=== PATIENT | female | born 1995 | race African-American/Black ===

== ENCOUNTER 2019-12-21 21:55 | Emergency (ER) | payer SELFPAY ==
--- NOTE | ~2019-12-21 | XR_ITS ---
EXAMINATION: XR chest 2V DATE: 12/21/2019 22:59 INDICATION: Cough and shortness of breath TECHNIQUE: PA and lateral views of the chest are obtained. COMPARISON: None available FINDINGS: The lungs are free of acute opacities. There is no pleural effusion or pneumothorax. The ca rdiomediastinal silhouette is normal. The visualized bones and soft tissues are unremarkable. IMPRESSION: 1. No acute cardiopulmonary abnormality. Reviewed, dictated and finalized at location A.
[2019-12-21 21:59] VITALS: BP 123/64; PULSE 88; RESP 16; TEMP 38.1; O2SAT 100
--- NOTE | 2019-12-21 23:03 | PC.NURSE ---
Assumed care of pt at this time. report from SCOTTY Howard
--- NOTE | 2019-12-21 23:22 | ED.URI ---
HPI - URI/Sore Throat General Chief Complaint: Upper Respiratory Infection Stated Complaint: cough, scratchy throat, tapia Time Seen by Provider: 12/21/19 21:59 History of Present Illness HPI Narrative: Patient is a 24-year-old female who presents ER with fever as well as body aches as well as sore throat and dry cough. Symptoms began yesterday. They occurred as she arrived back from [place] where she had spent the last week. She flew from [place] to [place] to [facility] and then flew back through [place] landing yesterday. No vomiting/abdominal pain/diarrhea/urinary frequency/urinary urgency/dysuria. No known sick contacts. Has taken some NyQuil for her discomfort. Mild nausea. Related Data Home Medications Medication Instructions Recorded Confirmed metronidazole 12/21/19 Allergies Allergy/AdvReac Type Severity Reaction Status Date / Time No Known Allergies Allergy Verified 12/21/19 23:29 Review of Systems Review of Systems: All systems reviewed & are unremarkable except as noted in HPI and below Constitutional: Constitutional: Denies chills, Reports fatigue and Reports fever(s) ENT: Denies nasal congestion and Reports sore throat Respiratory: Respiratory: Denies chest congestion, Reports cough, Denies dyspnea and Denies wheezing Gastrointestinal: Gastrointestinal: Denies diarrhea, Reports nausea and Denies vomiting Genitourinary: Genitourinary: Reports no additional female genitourinary complaints, Reports nocturia and Reports dysuria PMFSH Past Medical History Medical History (Updated 12/22/19 @ 00:07 by Andry Noe MD) No pertinent past medical history Surgical History Surgical History (Updated 12/21/19 @ 23:24 by Andry Noe MD) No pertinent past surgical history Social History Social History (Updated 12/21/19 @ 23:24 by Andry Noe MD) Smoking status: Never smoker Exam Narrative: Exam Narrative: GENERAL: Well-appearing, well-nourished, and in no acute distress. HEAD: Normocephalic, atraumatic. ENT: Mucous membranes moist. No pharyngeal erythema or tonsillar exudate. Uvula midline nonedematous. TMs normal bilaterally. NECK: Supple. CHEST: Clear to auscultation. No respiratory distress. HEART: Regular rate and rhythm. Normal peripheral pulses. EXTREMITIES: Normal range of motion. No edema. SKIN: Warm, dry, no rash. NEURO: Alert and oriented x3. PSYCH: Normal mood and affect. Course Course Emergency Course: No leukopenia or lymphopenia. Discussed with infection control and due to normal x-ray enterococcus and s posterior more endemic area for COVID patient will not be screened for viral infection. Patient is fusing to give a second sample for CMP since for sample was hemolyzed. She will be discharged. Vital Signs Vital signs: Vital Signs Temperature 100.5 F H 12/21/19 21:59 Pulse Rate 88 12/21/19 21:59 Respiratory Rate 16 12/21/19 21:59 Blood Pressure 123/64 12/21/19 21:59 Pulse Oximetry 100 12/21/19 21:59 Temperature 99.8 F H 12/21/19 23:29 Pulse Rate 85 12/21/19 23:29 Respiratory Rate 12 12/21/19 23:29 Blood Pressure 114/81 12/21/19 23:29 Pulse Oximetry 100 12/21/19 23:29 MDM - URI/Sore Throat Lab Data Result diagrams: 12/21/19 23:31 12/21/19 23:31 Labs: Lab Results 12/21/19 12/21/19 Range/Units 23:31 23:31 WBC 4.8 (4.5-10.0) K/mm3 RBC 4.95 (4.2-5.4) M/mm3 Hgb 13.7 (12.0-15.0) g/dL Hct 42.6 (37.0-47.0) % MCV 86.1 (80-100) fl MCH 27.7 (26-34) pg MCHC 32.2 (32-36) g/dl RDW 13.6 (11.5-14.5) % Plt Count 224 (150-375) k/mm3 MPV 11.5 H (7.4-10.4) fl Immature Gran % (Auto) 0.6 H (0-0.5) % Neut % (Auto) 63.3 (45.5-73.1) % Lymph % (Auto) 19.0 (18.3-44.2) % [place] % (Auto) 16.3 H (2.6-8.5) % Eos % (Auto) 0.4 (0-4.4) % Baso % (Auto) 0.4 (0.2-1.2) % Lymph # (Auto) 0.92 (0.9-3.2) K/mm3 [place] # (Auto) 0.8 H
[2019-12-21] MEDS: SODIUM CHLORIDE 0.9% IV 1,000 ML 999 ML IV CONT (23:26)
[2019-12-21] MEDS: ONDANSETRON INJ 4 MG/2 ML VIAL IV PUSH (23:27)
[2019-12-21] MEDS: ACETAMINOPHEN 500 MG TABLET 1000 MG PO (23:28)
[2019-12-21 23:29] VITALS: BP 114/81; PULSE 85; RESP 12; TEMP 37.7; O2SAT 100
[2019-12-21 23:40] LABS: Basophils Percent Auto 0.4 % (0.2-1.2); Eosinophils Percent Auto 0.4 % (0-4.4); Hematocrit 42.6 % (37.0-47.0); Hemoglobin 13.7 g/dL (12.0-15.0); Immature Granulocyte Absolute 0.03 K/mm3 (0.00-0.031); Immature Granulocyte Percent A 0.6 % (0-0.5); Lymphocytes Absolute Auto 0.92 K/mm3 (0.9-3.2); Mean Corpuscular HGB Conc 32.2 g/dl (32-36); Mean Corpuscular Hemoglobin 27.7 pg (26-34); Mean Corpuscular Volume 86.1 fl (80-100); Mean Platelet Volume 11.5 fl (7.4-10.4); Monocytes Absolute Auto 0.8 K/mm3 (0.1-0.6); Monocytes Percent Auto 16.3 % (2.6-8.5); Neutrophils Absolute Auto 3.1 K/mm3 (1.3-6.7); Neutrophils Percent Auto 63.3 % (45.5-73.1); Platelet Count Result 224 k/mm3 (150-375); Red Blood Count 4.95 M/mm3 (4.2-5.4); Red Cell Distribution Width 13.6 % (11.5-14.5); White Blood Count 4.8 K/mm3 (4.5-10.0)
[2019-12-21 23:58] VITALS: TEMP 38.2
--- NOTE | 2019-12-22 00:16 | PC.NURSE ---
PT refused repeat blood draw MD and RN notified. no further orders at this time.
[2019-12-22 00:20] VITALS: BP 139/82; PULSE 96; RESP 12; TEMP 38.2; O2SAT 100
== END 2019-12-22 00:20 | disposition home or self-care (01) ==
PROVIDERS: Emergency Provider Emergency Medicine
DX: B34.9 Viral infection, unspecified (principal)
CPT/HCPCS: 36415; 71046; 85025; 87081; 87804; 87880; 96361; 96374; 99284; A9270; J2405; J7030

== ENCOUNTER 2021-06-23 08:51 | Emergency (ER) | payer OTHER, SELFPAY ==
[2021-06-23 08:57] VITALS: BP 127/80; PULSE 83; RESP 18; TEMP 35.9; O2SAT 96
[2021-06-23 10:33] LABS: Basophils Absolute Auto 0.1 K/mm3 (0.0-0.1); Basophils Percent Auto 0.9 % (0.2-1.2); Eosinophils Absolute Auto 0.1 K/mm3 (0-0.3); Eosinophils Percent Auto 1.3 % (0-4.4); Hematocrit 39.1 % (37.0-47.0); Hemoglobin 12.5 g/dL (12.0-15.0); Immature Granulocyte Absolute 0.02 K/mm3 (0.00-0.031); Immature Granulocyte Percent A 0.4 % (0-0.5); Lymphocytes Absolute Auto 1.74 K/mm3 (0.9-3.2); Lymphocytes Percent Auto 32.2 % (18.3-44.2); Mean Corpuscular Hemoglobin 27.4 pg (26-34); Mean Corpuscular Volume 85.6 fl (80-100); Mean Platelet Volume 11.2 fl (7.4-10.4); Monocytes Absolute Auto 0.6 K/mm3 (0.1-0.6); Monocytes Percent Auto 10.6 % (2.6-8.5); Neutrophils Percent Auto 54.6 % (45.5-73.1); Platelet Count Result 240 k/mm3 (150-375); Red Blood Count 4.57 M/mm3 (4.2-5.4); Red Cell Distribution Width 13.4 % (11.5-14.5); White Blood Count 5.4 K/mm3 (4.5-10.0)
[2021-06-23 10:44] LABS: Alanine Aminotransferase 10 U/L (4-35); Albumin Level 4.4 g/dL (3.5-5.1); Alkaline Phosphatase 88 U/L (38-126); Anion Gap 8 mmol/L (8-16); Aspartate Amino Transferase 20 U/L (14-36); Bilirubin,Total 0.2 mg/dL (0.2-1.3); Blood Urea Nitrogen 15 mg/dL (7-17); Calcium 8.9 mg/dL (8.4-10.2); Carbon Dioxide 25 mmol/L (22-30); Chloride 105 mmol/L (98-107); Estimated CRCL calculation 107 ml/min; Estimated Glomerular Filt Rate > 60; Glucose 98 mg/dL (65-110); Lipase 21 U/L (23-300); Potassium 4.1 mmol/L (3.4-5.0); Sodium 138 mmol/L (137-145)
[2021-06-23 10:45] LABS: Add Urine Microscopic? YES; Appearance Urine Cloudy (Clear); Bilirubin Urine Negative (Negative); Blood Urine 3+ (Negative); Color Urine Yellow (Yellow); Glucose Urine UA 3+ mg/dL (Negative); Ketones Urine Negative (Negative); Leukocyte Esterase Ur 3+ LEU/UL (Negative); Mucus Urine Rare /lpf; Nitrate Urine Negative (Negative); Protein Urine 1+ mg/dL (Negative); RBC Urine >75 /hpf (0-2); Specific Grav Ur 1.018 (1.001-1.035); Squamous Epithelial Cell Urine Few /hpf (Few); WBC Urine 21-30 /hpf
--- NOTE | 2021-06-23 11:46 | ED.ABDPAIN ---
HPI - Abdominal Pain General Chief Complaint: Vaginal Bleeding Stated Complaint: heavy vaginal bleeding Time Seen by Provider: 06/23/21 09:44 Source: patient Mode of arrival: ambulatory Limitations: no limitations History of Present Illness HPI narrative: 25-year-old with no major medical problems here with complaints of heavy vaginal bleeding since this morning. She states that she passed a few clots and has 1 overnight pad. She denies any abdominal cramping. No history of feeling lightheaded or dizzy. She states that she did not have heavy. Like this in the past. Relieving factors: nothing Related Data Home Medications Medication Instructions Recorded Confirmed No Home Medications 06/23/21 06/23/21 Allergies Allergy/AdvReac Type Severity Reaction Status Date / Time No Known Allergies Allergy Verified 06/23/21 09:46 Review of Systems Review of Systems: All systems reviewed & are unremarkable except as noted in HPI and below Constitutional: Constitutional: Reports no additional constitutional complaints Eyes: Eyes: Reports no additional eye complaints ENT: Reports system reviewed and no additional complaints, except as documented Cardiovascular: Cardiovascular: Reports no additional cardiovascular complaints Respiratory: Respiratory: Reports no additional respiratory complaints Gastrointestinal: Gastrointestinal: Reports no additional gastrointestinal complaints Genitourinary: Genitourinary: Reports abnormal vaginal bleeding Musculoskeletal: Musculoskeletal: Reports no additional musculoskeletal complaints Integumentary/Breasts: Skin/Breast: Reports system reviewed and no additional complaints, except as docu Neurologic: Reports system reviewed and no additional complaints, except as documented PMFSH Past Medical History Medical History No pertinent past medical history Surgical History Surgical History No pertinent past surgical history Social History Social History Smoking status: Never smoker Exam Narrative: GENERAL: Well-appearing, well-nourished, and in no acute distress. HEAD: Normocephalic, atraumatic. EYES: PERRLA and EOMI. NECK: Supple. CHEST: Clear to auscultation. No respiratory distress. HEART: Regular rate and rhythm. No murmur heard. Normal peripheral pulses. ABDOMEN: Soft, nontender, nondistended, normal active bowel sounds. EXTREMITIES: Normal range of motion. No edema. SKIN: Warm, dry, no rash. NEURO: No focal deficits. Alert and oriented x3. PSYCH: Normal mood and affect. Course Course Emergency Course: Patient comfortably sitting on the stretcher in no discomfort informed her about her lab work. Advised her to drink plenty of fluids, take ibuprofen for pain. And follow-up with OB. She does feel comfortable going home. Vital Signs Vital signs: Vital Signs Temperature 35.9 C L 06/23/21 08:57 Pulse Rate 83 06/23/21 08:57 Respiratory Rate 18 06/23/21 08:57 Blood Pressure 127/80 06/23/21 08:57 Pulse Oximetry 96 06/23/21 08:57 Temperature 35.9 C L 06/23/21 08:57 Pulse Rate 83 06/23/21 08:57 Respiratory Rate 18 06/23/21 08:57 Blood Pressure 127/80 06/23/21 08:57 Pulse Oximetry 96 06/23/21 08:57 MDM - Abdominal Pain Lab Data Result diagrams: 06/23/21 10:26 06/23/21 10:26 Labs: Lab Results 06/23/21 06/23/21 06/23/21 Range/Units 10:26 10:26 10:34 WBC 5.4 (4.5-10.0) K/mm3 RBC 4.57 (4.2-5.4) M/mm3 Hgb 12.5 (12.0-15.0) g/dL Hct 39.1 (37.0-47.0) % MCV 85.6 (80-100) fl MCH 27.4 (26-34) pg MCHC 32.0 (32-36) g/dl RDW 13.4 (11.5-14.5) % Plt Count 240 (150-375) k/mm3 MPV 11.2 H (7.4-10.4) fl Immature Gran % (Auto) 0.4 (0-0.5) % Neut % (Auto) 54.6 (45.5-73.1) % Lymph % (Auto)
[2021-06-23 12:26] VITALS: BP 132/76; PULSE 86; RESP 18; O2SAT 98
== END 2021-06-23 12:26 | disposition home or self-care (01) ==
PROVIDERS: Emergency Provider Family Medicine
DX: N93.9 Abnormal uterine and vaginal bleeding, unspecified (principal)
CPT/HCPCS: 36415; 80053; 81001; 81025; 83690; 85025; 87077; 87086; 87088; 99283

== ENCOUNTER 2022-03-06 22:07 | Emergency (ER) | payer OTHER, SELFPAY ==
--- NOTE | ~2022-03-06 | XR_ITS ---
EXAMINATION: XR wrist LT min 3V DATE: 03/06/2022 22:58 INDICATION: Left wrist pain TECHNIQUE: Posteroanterior, ulnar deviation, oblique, and lateral views of the left wrist were obtain ed. COMPARISON: None available FINDINGS: There is no fracture, dislocation, or subluxation. The bones, soft tissues, and joint space s are normal. IMPRESSION: 1. No acute osseous abnormality. Reviewed, dictated and finalized at location F.
--- NOTE | ~2022-03-06 | XR_ITS ---
EXAMINATION: XR ankle RT 2V INDICATION: Right ankle pain TECHNIQUE: Two views of the right ankle are obtained. COMPARISON: None available FINDINGS: There is no fracture, dislocation, or subluxation. The bones, soft tissues, and joint space s are normal. IMPRESSION: 1. No acute osseous abnormality. Reviewed, dictated and finalized at location F.
--- NOTE | ~2022-03-06 | XR_ITS ---
EXAMINATION: XR knee LT 2V DATE: 03/06/2022 22:58 INDICATION: Left knee pain TECHNIQUE: Two views of the left knee were obtained. COMPARISON: None. FINDINGS: Alignment is normal. No fracture or osteochondral lesion. Joint spaces are normal with no e rosions. No joint effusion/synovitis. Soft tissues are unremarkable. IMPRESSION: 1. No acute osseous abnormality. Reviewed, dictated and finalized at location F.
[2022-03-06 22:07] VITALS: BP 119/85; PULSE 95; RESP 18; TEMP 36.5; O2SAT 98
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
[2022-03-06] MEDS: CYCLOBENZAPRINE HCL 10 MG TABLET PO (23:01)
[2022-03-06] MEDS: ACETAMINOPHEN 500 MG TABLET 1000 MG PO (23:02)
[2022-03-06] MEDS: IBUPROFEN 400 MG TABLET 800 MG PO (23:03)
[2022-03-06 23:37] VITALS: BP 115/65; PULSE 75; RESP 18; O2SAT 100
[2022-03-06] MEDS: TETANUS,DIPHTHERIA,AC PERTUSSIS ADULT (0.5 ML) BOOSTRIX IM (23:38)
[2022-03-07 00:16] VITALS: BP 115/67; PULSE 86; RESP 18; O2SAT 99
== END 2022-03-07 00:09 | disposition home or self-care (01) ==
PROVIDERS: Emergency Provider Emergency Medicine
DX: S99.911A Unspecified injury of right ankle, initial encounter (principal); S89.92XA Unspecified injury of left lower leg, initial encounter; S69.92XA Unspecified injury of left wrist, hand and finger(s), initial encounter; S50.812A Abrasion of left forearm, initial encounter; Z23 Encounter for immunization; V43.52XA Car driver injured in collision with other type car in traffic accident, initial encounter
CPT/HCPCS: 73110; 73560; 73600; 90471; 90715; 99284; A9270

== ENCOUNTER 2024-04-25 15:38 | Inpatient (IN) | payer OTHER, SELFPAY ==
[2024-04-25] VITALS (20 sets, daily range): BP systolic 97–144; BP diastolic 69–97; PULSE 58–88; TEMP 36.5; BMI 36.1
--- NOTE | 2024-04-25 15:38 | LDADM ---
This patient, Jaren Thakkar, was admitted to Labor/Delivery/Recovery 108 on 04/25/24 at 15:38. Plans for labor, pain management and were discussed with patient. Patient/family oriented to hospital policies and general routines including ID bracelet, bed and alarms, visiting hours, pain management, procedures, bathroom and other care routines, personal items, smoking policy, room service/diet and guest tray routines, security routines, and visiting hours. Patient/Family are encouraged to report perceived risks to care and to ask questions if they do not understand what they are told or what they should do. See OBIX for further documentation.
[2024-04-25 16:38] LABS: Basophils Percent Auto 0.2 % (0.2-1.2); Eosinophils Percent Auto 0.5 % (0-4.4); Hematocrit 29.4 % (37.0-47.0); Immature Granulocyte Absolute 0.02 K/mm3 (0.00-0.031); Immature Granulocyte Percent A 0.3 % (0-0.5); Lymphocytes Absolute Auto 1.65 K/mm3 (0.9-3.2); Lymphocytes Percent Auto 28.4 % (18.3-44.2); Mean Corpuscular HGB Conc 30.6 g/dl (32-36); Mean Corpuscular Volume 71.9 fl (80-100); Monocytes Absolute Auto 0.6 K/mm3 (0.1-0.6); Monocytes Percent Auto 9.8 % (2.6-8.5); Neutrophils Absolute Auto 3.5 K/mm3 (1.3-6.7); Neutrophils Percent Auto 60.8 % (45.5-73.1); Nucleated Red Blood Cells Perc 0.5 % (0.0-0.2); Platelet Count Result 260 k/mm3 (150-375); Red Blood Count 4.09 M/mm3 (4.2-5.4); Red Cell Distribution Width 16.3 % (11.5-14.5); White Blood Count 5.8 K/mm3 (4.5-10.0)
[2024-04-25] MEDS: miSOPROStol 25 MCG TABLET 50 MCG BUCCAL ×2 (16:50→22:40)
[2024-04-25 17:04] LABS: Anisocytosis 1+; Microcytosis 1+ (NORMAL); Platelet Estimate Adequate (Adequate); Schistocytes None Seen
[2024-04-25 17:38] LABS: HIV 1/2 Ab P24 Ag Result Negative (Negative)
--- NOTE | 2024-04-25 18:14 | WPDANESEPP ---
Anes - Eval Pre Procedure Procedure: labor epidural Date/Time: 04/25/24 18:14 Pre Op Diagnosis: Induction of Labor Patient Data Age: 28 Gender: F Height: 1.75 m Weight: 111 kg Last Vital Signs Temp 36.5 C 04/25/24 16:56 Pulse 58 L 04/25/24 18:01 BP 141/84 H 04/25/24 18:01 Allergies Allergy/AdvReac Type Severity Reaction Status Date / Time No Known Allergies Allergy Verified 03/06/22 22:16 Laboratory Tests 04/25/24 16:25 WBC 5.8 K/mm3 (4.5-10.0) RBC 4.09 L M/mm3 (4.2-5.4) Hgb 9.0 L D g/dL (12.0-15.0) Hct 29.4 L % (37.0-47.0) MCV 71.9 L fl (80-100) MCH 22.0 L pg (26-34) MCHC 30.6 L g/dl (32-36) RDW 16.3 H % (11.5-14.5) Plt Count 260 k/mm3 (150-375) MPV 11.0 H fl (7.4-10.4) Immature Gran % (Auto) 0.3 % (0-0.5) Neut % (Auto) 60.8 % (45.5-73.1) Lymph % (Auto) 28.4 % (18.3-44.2) [place] % (Auto) 9.8 H % (2.6-8.5) Eos % (Auto) 0.5 % (0-4.4) Baso % (Auto) 0.2 % (0.2-1.2) Lymph # (Auto) 1.65 K/mm3 (0.9-3.2) [place] # (Auto) 0.6 K/mm3 (0.1-0.6) Eos # (Auto) 0.0 K/mm3 (0-0.3) Baso # (Auto) 0.0 K/mm3 (0.0-0.1) Abs Immat Gran (auto) 0.02 K/mm3 (0.00-0.031) Absolute Neuts (auto) 3.5 K/mm3 (1.3-6.7) Absolute Nucleated RBC 0.030 H K/mm3 (0.0-0.012) Nucleated RBC % 0.5 H % (0.0-0.2) Platelet Estimate Adequate (Adequate) Anisocytosis 1+ Microcytosis 1+ (NORMAL) Schistocytes None seen RPR Pending HIV 1&2 Ab/P24 Ag 4thGn Negative (Negative) Blood Type O Positive Antibody Screen Negative Patient hx anesthesia problems: none Family hx anesthesia problems: none Results Review: All pre-operative results and documents have been reviewed as part of the pre-operative evaluation. 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 Surgical History Surgical History No pertinent past surgical history Family History Family History Grandparent Diabetes mellitus Social History Social History Smoking status: Never smoker Substance use: never Do You Feel Safe in your Home?: Yes Lack of Transportation: No Lack of Food: Never True Current Housing: I Have Housing Concerned About Future Housing: No Difficulty Paying Gas/Electric Bills: No Difficulty Paying for Meds: No Currently Unemployed: No Education: High School Diploma/GED Difficulty w/ Childcare or Family Care: No Spiritual care concerns: No Exam Day of Procedure 04/25/24 18:14 Patient weight: obese Heart: regular rate and rhythm Lungs: normal air movement Airway: Mallampati scale Neurological: alert and oriented
[2024-04-26] VITALS (36 sets, daily range): BP systolic 102–144; BP diastolic 62–99; PULSE 54–78; RESP 16–18; TEMP 36.4–37.1; O2SAT 98–100
[2024-04-26] MEDS: LACTATED RINGERS 1,000 ML 125 ML IV CONT (02:54)
[2024-04-26] MEDS: FAMOTIDINE 20 MG/2 ML VIAL IV PUSH (04:32)
[2024-04-26] MEDS: OXYTOCIN 30 UNITS/NS 500 ML 30 UNITS/500 ML BAG IV CONT (05:05)
[2024-04-26] MEDS: fentaNYL CITRATE INJ (*CRX) 100 MCG/2 ML VIAL 50 MCG IV PUSH (09:13)
[2024-04-26] MEDS: OXYTOCIN 30 UNITS/NS 500 ML 30 UNITS/500 ML BAG 125 UNITS IV CONT (10:52)
[2024-04-26] MEDS: BENZOCAINE 20% AER SPR (*SP) 56 GM CAN 1 SPRAY (13:01)
[2024-04-26] MEDS: WITCH HAZEL 40 PADS 1 PAD TOPICAL (13:08)
[2024-04-26] MEDS: BENZOCAINE 20% AER SPR (*SP) 56 GM CAN 1 SPRAY TOPICAL (13:09)
--- NOTE | 2024-04-26 13:33 | PM.IMHP ---
H&P: HPI History of Present Illness Date/Time: 04/26/24 0800 Chief Complaint: Elective induction Narrative: Patient is a 28 year old who presents for elective induction of labor. Her has been overall uncomplicated. Denies strong contractions, LOF, or VB. GOod movement. 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 Surgical History Surgical History No pertinent past surgical history Family History Family History Grandparent Diabetes mellitus Social History Social History Smoking status: Never smoker Substance use: never Do You Feel Safe in your Home?: Yes Lack of Transportation: No Lack of Food: Never True Current Housing: I Have Housing Concerned About Future Housing: No Difficulty Paying Gas/Electric Bills: No Difficulty Paying for Meds: No Currently Unemployed: No Education: High School Diploma/GED Difficulty w/ Childcare or Family Care: No Spiritual care concerns: No Meds Home Medications and Allergies Allergies Allergy/AdvReac Type Severity Reaction Status Date / Time No Known Allergies Allergy Verified 03/06/22 22:16 Vital Signs Vital Signs - 24 hr 04/25/24 16:39 04/25/24 16:46 04/25/24 17:00 Temperature Pulse Rate 78 80 78 Blood Pressure 128/75 141/74 H 119/72 Oxygen Delivery 04/25/24 16:56 04/25/24 17:15 04/25/24 17:30 Temperature 97.7 F Pulse Rate 78 61 Blood Pressure 120/80 134/83 Oxygen Delivery 04/25/24 17:46 04/25/24 18:01 04/25/24 18:15 Temperature Pulse Rate 64 58 L 68 Blood Pressure 142/88 H 141/84 H 108/97 H Oxygen Delivery 04/25/24 18:30 04/25/24 18:45 04/25/24 19:30 Temperature Pulse Rate 71 80 87 Blood Pressure 131/79 130/77 123/82 Oxygen Delivery 04/25/24 20:00 04/25/24 20:30 04/25/24 21:00 Temperature Pulse Rate 72 76 79 Blood Pressure 134/83 144/88 H 144/85 H Oxygen Delivery 04/25/24 21:30 04/25/24 22:01 04/25/24 22:30 Temperature Pulse Rate 82 69 70 Blood Pressure 144/92 H 140/83 Oxygen Delivery 04/25/24 23:01 04/25/24 23:30 04/26/24 00:00 Temperature Pulse Rate 88 68 69 Blood Pressure 97/69 L 126/85 141/84 H Oxygen Delivery 04/26/24 00:30 04/26/24 01:00 04/26/24 01:30 Temperature Pulse Rate 69 68 57 L Blood Pressure 122/96 H 116/62 133/77 Oxygen Delivery 04/26/24 02:00 04/26/24 02:31 04/26/24 03:01 Temperature Pulse Rate 64 68 75 Blood Pressure 138/79 139/76 122/98 H Oxygen Delivery 04/26/24 04:18 04/26/24 04:31 04/26/24 05:00 Temperature Pulse Rate 64 75 64 Blood Pressure 118/62 129/85 120/76 Oxygen Delivery 04/26/24 05:05 04/26/24 05:31 04/26/24 06:00 Temperature 97.9 F Pulse Rate 73 67 Blood Pressure 132/69 129/87 Oxygen Delivery 04/26/24 06:30 04/26/24 07:00 04/26/24 07:30 Temperature 97.5 F L Pulse Rate 73 58 L 68 Blood Pressure 121/94 H 125/80 124/81 Oxygen Delivery 04/26/24 08:00 04/26/24 08:15 04/26/24 08:30 Temperature 97.6 F Pulse Rate 64 74 Blood Pressure 130/87 130/80 Oxygen Delivery 04/26/24 09:01 04/26/24 09:31 04/26/24 10:01 Temperature Pulse Rate 66 67 78 Blood Pressure 102/74 105/66 141/99 H Oxygen Delivery 04/26/24 10:35 04/26/24 10:45 04/26/24 11:00 Temperature Pulse Rate 62 68 56 L Blood Pressure 127/79 122/78 139/86 Oxygen Delivery 04/26/24 11:15 04/26/24 10:30 04/26/24 11:30 Temperature 97.7 F Pulse Rate 55 L 54 L Blood Pressure 141/80 H 136/82 Oxygen Delivery 04/26/24 11:45 04/26/24 12:01 04/26/24 12:16 Temperatu
[2024-04-26 13:34] LABS: Rapid Plasma Reagin Non-Reactive (NonReactive)
--- NOTE | 2024-04-26 13:35 | PM.OBPRVD ---
OB - Vaginal Delivery Note Procedure Delivery date: 04/26/24 Events: Elective Induction of Labor Induction method: Per Misoprostol Protocol Delivery augmentation: Rupture of Membranes and Pitocin Delivery monitor: External FHT and External Uterine Route of delivery: Episiotomy description: None Laceration Description: None Specimen: No Quantitative Blood Loss (ml): 50 Anesthesia type: None Disposition: Floor Complications: No immediate complications Narrative: See H&P and notes for details on patient's admission and labor. She progressed to complete cervical dilation and at the appropriate time began pushing. With adequate expulsive efforts by the mother, the baby's head was delivered without difficulty. Nuchal cord was not present. The baby's right shoulder was anterior and delivered under the pubic symphysis without difficulty. The posterior shoulder and the rest of the baby delivered without difficulty. The umbilical cord was doubly clamped and cut after 7 minutes of delayed cord clamping. Care of the infant was then assumed by the nursing staff. [place] [facility] Date of : 04/26/24 Weeks of gestation at delivery: 39 gender: Male presentation: vertex position: Left Occiput Anterior Placenta delivery description: Expressed Cord Vessel Description: 3 Vessels and Delayed Cord Clamping
[2024-04-26] MEDS: ACETAMINOPHEN 325 MG TABLET 650 MG PO (15:23)
--- NOTE | 2024-04-26 18:25 | OBPPTRN ---
1316 Patient transferred to post room #281 via W/C. Support person present. Oriented to unit, room, information board, rooming in, admission packet and security measures. Patient verbalizes understanding.
[2024-04-26] MEDS: IBUPROFEN 600 MG TABLET PO (23:48)
[2024-04-27] MEDS: ACETAMINOPHEN 325 MG TABLET 650 MG PO ×2 (04:50→11:38)
[2024-04-27 06:01] LABS: Hematocrit 28.1 % (37.0-47.0); Hemoglobin 8.6 g/dL (12.0-15.0)
[2024-04-27] MEDS: DOCUSATE SODIUM 100 MG CAPSULE PO (07:44)
[2024-04-27] MEDS: MULTIVIT/MIN/PREN/FOL AC/IRON TABLET 1 TAB PO (07:44)
[2024-04-27] MEDS: POLYSACCHARIDE IRON COMPLEX 150 MG CAPSULE PO (07:44)
[2024-04-27] MEDS: IBUPROFEN 600 MG TABLET PO (07:44)
[2024-04-27 08:06] VITALS: BP 122/47; PULSE 62; RESP 16; TEMP 36.6; O2SAT 100
--- NOTE | 2024-04-27 09:07 | PC.NURSE ---
Patient viewed the discharge video Mother & Baby Care, The First Two Weeks . Patient was given the opportunity and encouraged to ask questions. Patient verbalized understanding of information shared and has been given the mother/baby guide for home reference.
[2024-04-27] MEDS: TETANUS,DIPHTHERIA,AC PERTUSSIS ADULT (0.5 ML) BOOSTRIX IM (11:39)
--- NOTE | 2024-04-27 14:27 | PC.NURSE ---
0855 RN in room to discuss with mother her feeding plan, she had originally wanted to breast and bottle feed, but had only bottle fed all the baby's feeds so far. Per mother she wanted try and put baby to breast, she wanted information regarding latching and positions, she thought that she would only pump and bottle feed though. 0955 RN in room and offered to help mother with positioning and with the baby's next feeding. RN advised mother to put baby skin to skin before feeding and watch for feeding cues and then call out for assistance. The patient requested an insurance breast pump to take home. Instructions given on cleaning, care, usage, that there should be no pain, pumping schedule for milk production, collection, and storage of human milk. Patient was assessed for correct placement, flange size, to pump for comfort and nipple stretching/stimulation for adequate milk production every 3 hours (8 times in 24 hours) 1-2 times at night. Parents are encouraged to record the pumping schedule on the feeding sheet.?Mother voiced understanding of the education shared along with mom/baby guide and the pump measurement, flange fit handout for additional resource information. Reported to the Primary RN. 1100 Primary RN (Bandar Murdock) assisted mother with and baby was able to latch and successfully breastfeed for 25 minutes. 1235 RN faxed [facility] referral to [place] office. Mother aware.
[2024-04-28 11:50] VITALS: BP 116/86; PULSE 63; RESP 18; TEMP 37.1; O2SAT 100
--- NOTE | 2024-05-02 12:06 | PM.OBDSVD ---
DS: Admitting Diagnosis Discharge Date 04/27/24 Admitting Diagnosis elective induction of labor DS: Discharge Diagnosis Discharge Diagnosis (1) (spontaneous vaginal delivery): Code(s): O80 - Encounter for full-term uncomplicated delivery Status: Acute OB - DS: Summary OB Procedures : None OB Procedures Intrapartum: Spontaneous Vag Delivery OB Procedures: : None Peripartum Data Laceration Description: None Episiotomy description: None Time Spent with Patient Time attestation: Total time spent providing and/or coordinating discharge services: Discharge Plan Discharge Attending physician on discharge: Mukesh Crane Consulting providers: Jennifer Hall Discharging Clinician: Mukesh Crane Patient Disposition: Home, Self-Care Activity: may shower, as tolerated and pelvic rest Diet: as tolerated Discharge Instructions: Education: Mom and Baby Guide Given to: Mother Follow-Up: Call your delivering provider's office for an appointment to be seen in: 4 Weeks Mom and baby should come to the [facility] for the follow-up appointment. Appointment Date/Time: April 28, 2024 at 11:00 am What to expect at your follow-up visit: Blood Pressure Check Physical Assessment Call [phone] if you are unable to keep your appointment time. BREAST CARE: * Wear a snug supportive bra. * For engorgement discomfort: Breast Feeding: * Apply warm moist washcloths * Express milk as needed to relieve engorgement * Wear loose clothing Bottle Feeding: * May apply ice packs * For sore nipples: * Identify correct latch-on * Apply warm moist washcloths before and after nursing * Air dry nipples after nursing * May apply Lansinoh cream to nipples PERINEAL CARE: * Until bleeding stops, use your benito bottle after urinating * Change your pad frequently throughout the day * You may take sitz baths several times a day (fill your bathtub with warm water and soak for 20 minutes.) Do NOT bathe in the water * No tub baths until seen by your physician - You may shower ACTIVITY: * Rest as much as possible. * Do not exercise or lift anything heavier than your baby (such as laundry or other children.) * Avoid stairs or driving as much as possible. * Do not put anything into the vagina. No douching, tampons, or sexual activity until seen by physician. NOTIFY PHYSICIAN IF YOU HAVE ANY QUESTIONS OR IF ANY OF THE FOLLOWING SYMPTOMS OCCUR: * If your vaginal bleeding becomes foul smelling. * If your vaginal bleeding becomes more heavy than a period or if your bleeding changes from pink to bright red. However, you may pass an occasional walnut-sized clot once or twice for the first week . * If you experience a sharp, shooting pain in your calves. * If you discover a hard, reddened area on your breast or if you experience flu-like symptoms. DIET: * Eat regular, well-balanced meals. * Drink plenty of fluids daily. If , drink to thirst. Stand Alone Forms: General Discharge Information Follow-up/Referrals: Mukesh Crane MD [Physician] - 4 Weeks Discharge Medications: New docusate sodium 100 mg Capsule 100 mg PO BID PRN (Reason: Constipation) Qty: 60 0RF ibuprofen 600 mg Tablet 600 mg PO Q6H PRN (Reason: Cramping) Qty: 30 0RF Date of admission: 04/25/24 15:38 Primary Care Provider: GriffinAleah Admitting Provider: Mukesh Crane Attending physician on admission: Mukesh Crane Condition: Stable
== END 2024-04-27 12:50 | disposition home or self-care (01) | DRG 807 ==
LOC: ANHLDR 15:46 → ANHOB2 04-26 13:29
PROVIDERS: Admitting Provider Obstetrics & Gynecology; PCP Nurse Practitioner Family; Visit Provider Obstetrics & Gynecology
DX: O80 Encounter for full-term uncomplicated delivery (principal); Z37.0 Single live birth; Z3A.39 39 weeks gestation of pregnancy
CPT/HCPCS: 36415; 85014; 85018; 85025; 86592; 86703; 86850; 86900; 86901; 90715; A9270; G0432; J2590; J3010; J7120